=== PATIENT | male | born 2000 | race Two or more races ===

== ENCOUNTER 2023-03-30 21:42 | Emergency (ER) | payer OTHER | END 2023-03-30 23:54 | disposition left against medical advice (07) | LOC: ER 21:44 | DX: Z53.21 Procedure and treatment not carried out due to patient leaving prior to being seen by health care provider (principal) ==

== ENCOUNTER 2023-08-10 12:13 | Emergency (ER) | payer OTHER ==
[~2023-08-10] VITALS: Ht 167.6 cm; Wt 77.1 kg
[2023-08-10 12:19] VITALS: BP 138/74; TEMP 98.2
[2023-08-10] MEDS ORDERED: IBUP-1955 PO (13:55)
[2023-08-10 14:09] VITALS: O2SAT 97
== END 2023-08-10 14:10 ==
LOC: ER 12:15
DX: R07.89 Other chest pain (principal)